=== PATIENT | male | born 1940 | race Caucasian/White ===

== ENCOUNTER → 2020-05-28 | Outpatient (CLI) | payer OTHER ==
[~2020-05-28] MED LIST: ACET-1600 PO; ALOG12.52 PO; ATOR40TA78 PO; CYAN-27 PO; GABA300C PO; GLIP5TAB10 PO; HYDROCHLOROTH12.5 MG PO; IBUP200C8 PO; LEVO88TA4 PO; LISI40TA PO; METH500T7 PO; OMEP-110 PO
[2020-05-28 15:06] LABS: BASOPHILS # (AUTO) 0.06 x10^3/uL (0-0.1); BASOPHILS % (AUTO) 1 % (0-1); EOSINOPHILS # (AUTO) 0.14 x10^3/uL (0-0.4); EOSINOPHILS % (AUTO) 2 % (1-7); LYMPHOCYTES % (AUTO) 23 % (22-44); MD NO; MEAN CORPUSCULAR HEMOGLOBIN 30.5 pg (27.5-34.5); MEAN CORPUSCULAR HGB CONC 33.2 g/dL (33.2-36.2); MEAN CORPUSCULAR VOLUME 91.7 fL (81-97); MEAN PLATELET VOLUME 9.9 fL (7.4-10.4); MONOCYTES # (AUTO) 0.49 x10^3/uL (0.2-0.8); MONOCYTES % (AUTO) 5 % (2-9); NEUTROPHILS # (AUTO) 6.25 x10^3/uL (1.8-6.8); NEUTROPHILS % (AUTO) 69 % (42-75); PLATELET COUNT 231 x10^3/uL (130-400); RED BLOOD COUNT 4.96 x10^6/uL (4.38-5.82); RED CELL DISTRIBUTION WIDTH 14.9 % (9.4-14.8)
[2020-05-28 15:18] LABS: ALBUMIN 4.1 g/dL (3.4-5.0); ANION GAP 9 mmol/L (5-15); CALCIUM 8.6 mg/dL (8.5-10.1); CHLORIDE 106 mmol/L (98-107)
[2020-05-28 15:21] LABS: ALANINE AMINOTRANSFERASE 31 U/L (12-78); ALKALINE PHOSPHATASE 73 U/L (45-117); BILIRUBIN,TOTAL 0.8 mg/dL (0.2-1.0); CREATININE 1.34 mg/dL (0.7-1.3); TOTAL PROTEIN 7.8 g/dL (6.4-8.2)
[2020-05-28 15:29] LABS: INTERNATIONAL NORMALIZED RATIO 1.07 (0.93-1.1)
[2020-05-28 15:41] LABS: MICROSCOPIC NOT IND
== END | disposition home or self-care (01) ==
LOC: STAR 13:44
PROVIDERS: ATTEND Neurological Surgery
DX: Z01.818 Encounter for other preprocedural examination (principal); Z01.812 Encounter for preprocedural laboratory examination; Z01.811 Encounter for preprocedural respiratory examination; Z01.810 Encounter for preprocedural cardiovascular examination; M48.062 Spinal stenosis, lumbar region with neurogenic claudication; R79.1 Abnormal coagulation profile; R82.90 Unspecified abnormal findings in urine; R94.31 Abnormal electrocardiogram [ECG] [EKG]
CPT/HCPCS: 36415; 71046; 80053; 81003; 85025; 85610; 85730; 93005

== ENCOUNTER 2020-06-03 07:51 | Observation (INO) | payer OTHER ==
[~2020-06-03] VITALS: Ht 180.3 cm; Wt 93.8 kg
[~2020-06-03 07:51] MED LIST changes: +BACITRACIN 50,000 UNIT ONE; +BUPIVACAINE/PF-EPI 0.5% 1:200K ONE; +VANCOMYCIN 1,000 MG ONE
[2020-06-03] MEDS ORDERED: CHLORHEXIDINE 15 ML UDC MM ONE (08:30)
[2020-06-03 08:40] VITALS: BP 150/82
[2020-06-03] MEDS: LACTATED RINGERS 1,000 ML IV SCH ×2 (09:06→12:36)
[2020-06-03] MEDS ORDERED: FENTANYL PF 250 MCG/5ML ONE (09:32)
[2020-06-03] MEDS ORDERED: OXYcodone 5 MG/5 ML ORAL.SOL UDC ONE (12:15)
[2020-06-03] MEDS ORDERED: FENTANYL PF 100 MCG/2ML ONE (12:15)
[2020-06-03] MEDS: FENTANYL PF 100 MCG/2ML IV PRN ×2 (12:20→12:30)
[2020-06-03] MEDS ORDERED: ONDANSETRON 2MG/ML, 2ML IVPush PRN (12:30)
[2020-06-03] MEDS: LEVOTHYROXINE 88 MCG TABLET PO SCH (12:30)
[2020-06-03] MEDS ORDERED: ONDANSETRON 2MG/ML, 2ML ONE (12:30)
[2020-06-03] MEDS ORDERED: DIPHENHYDRAMINE 50 MG/ML, 1ML IVPush PRN (12:30)
[2020-06-03] MEDS ORDERED: CEFAZOLIN PMX 1GM/50ML 50 ML IVPB SCH (12:30)
[2020-06-03] MEDS ORDERED: ACETAMINOPHEN 650 MG SUPP PR PRN (12:30)
[2020-06-03] MEDS ORDERED: BISACODYL 10 MG SUPP PR PRN (12:30)
[2020-06-03] MEDS ORDERED: SENNA/DOCUSATE TABLET PO PRN (12:30)
[2020-06-03] MEDS ORDERED: NEOSTIGMINE 1 MG/ML, 10ML ONE (12:30)
[2020-06-03] MEDS ORDERED: SUCCINYLCHOLINE 20 MG/ML, 10ML ONE (12:30)
[2020-06-03] MEDS ORDERED: METHOCARBAMOL 1,000 MG in DEXTROSE 5% 100 ML IV ONE (12:30)
[2020-06-03] MEDS ORDERED: HYDROcodone/APAP 10/325 MG TABLET PO PRN (12:30)
[2020-06-03] MEDS: CYANOCOBALAMIN 1,000 MCG TABLET PO SCH (12:30)
[2020-06-03] MEDS ORDERED: SUGAMMADEX 200 MG/2 ML IVPush ONE (12:30)
[2020-06-03] MEDS ORDERED: GLYCOPYRROLATE 0.2MG/1ML, 5ML ONE (12:30)
[2020-06-03] MEDS ORDERED: DEXAMETHASONE 4 MG/ML, 1ML ONE (12:30)
[2020-06-03] MEDS: HYDROCHLOROTHIAZIDE 12.5 MG CAPSULE PO SCH (12:30)
[2020-06-03] MEDS ORDERED: ENOXAPARIN 40 MG/0.4 ML SQ SCH (12:30)
[2020-06-03] MEDS ORDERED: PHARMACY MAY ADJ FOR RENAL FX MC PRN (12:30)
[2020-06-03] MEDS ORDERED: HYDROmorphone 1 MG/ML, 1ML INJ IVPush PRN (12:30)
[2020-06-03] MEDS ORDERED: ROCURONIUM 10MG/ML,5ML ONE (12:30)
[2020-06-03] MEDS ORDERED: CEFAZOLIN 1,000 MG ONE (12:30)
[2020-06-03] MEDS ORDERED: PROPOFOL 10 MG/ML, 20ML ONE (12:30)
[2020-06-03] MEDS ORDERED: MAGNESIUM HYDROXIDE 8%, 30ML UDC PO PRN (12:30)
[2020-06-03] MEDS ORDERED: HYDROcodone/APAP 5/325 TABLET PO PRN (12:30)
[2020-06-03] MEDS ORDERED: PROMETHAZINE 25 MG/ML, 1ML IM PRN (12:30)
[2020-06-03] MEDS: OMEPRAZOLE 20 MG CAPSULE.DR PO SCH (12:30)
[2020-06-03] MEDS ORDERED: HYDROmorphone 1 MG/ML, 1ML INJ ONE (12:40)
[2020-06-03] MEDS: HYDROmorphone 2 MG/ML, 1ML IVPush PRN ×2 (12:42→12:52)
[2020-06-03] MEDS ORDERED: ACETAMINOPHEN 325 MG TABLET PO PRN (13:00)
[2020-06-03] MEDS ORDERED: hydrALAzine 20 MG/ML, 1ML IV PRN (13:00)
[2020-06-03] MEDS ORDERED: LABETALOL 5MG/ML, 20ML IV PRN (13:00)
[2020-06-03] MEDS ORDERED: ALBUTEROL SULFATE 2.5 MG/3 ML NPPB PRN (13:00)
[2020-06-03] MEDS ORDERED: MEPERIDINE/PF 25MG/0.5ML IVPush PRN (13:00)
[2020-06-03] MEDS ORDERED: PROMETHAZINE 25 MG/ML, 1ML IV PRN (13:00)
[2020-06-03] MEDS ORDERED: OXYcodone 5 MG/5 ML ORAL.SOL UDC PO PRN (13:00)
[2020-06-03] MEDS ORDERED: DIAZEPAM 5 MG/ML, 2ML IVPush PRN (13:00)
[2020-06-03 18:02] VITALS: BP 152/72
[2020-06-03] MEDS: LISINOPRIL 40 MG TABLET PO SCH (18:13)
[2020-06-03] MEDS: CEFAZOLIN PMX 1GM/50ML 50 ML IVPB SCH (18:49)
[2020-06-03] MEDS: NS + 20MEQ KCL 1,000 ML IV SCH (18:49)
[2020-06-03] MEDS: SODIUM CHLORIDE FLUSH 10ML SYR IVF SCH (20:25)
[2020-06-03] MEDS: GABAPENTIN 300 MG CAPSULE PO SCH (20:25)
[2020-06-03] MEDS ORDERED: ATORVASTATIN 40 MG TABLET PO SCH (21:00)
[2020-06-03 23:16] VITALS: BP 134/67
[2020-06-04] MEDS: CEFAZOLIN PMX 1GM/50ML 50 ML IVPB SCH (02:42)
[2020-06-04 03:38] VITALS: BP 137/69
[2020-06-04] MEDS: NS + 20MEQ KCL 1,000 ML IV SCH (05:02)
[2020-06-04] MEDS ORDERED: ENOXAPARIN 40 MG/0.4 ML SQ SCH (06:00)
[2020-06-04 08:10] VITALS: BP 127/71
[2020-06-04] MEDS: LISINOPRIL 40 MG TABLET PO SCH (08:57)
[2020-06-04] MEDS: CYANOCOBALAMIN 1,000 MCG TABLET PO SCH (08:57)
[2020-06-04] MEDS: GABAPENTIN 300 MG CAPSULE PO SCH (08:58)
[2020-06-04] MEDS: OMEPRAZOLE 20 MG CAPSULE.DR PO SCH (08:58)
[2020-06-04] MEDS: SODIUM CHLORIDE FLUSH 10ML SYR IVF SCH (08:58)
[2020-06-04] MEDS: HYDROCHLOROTHIAZIDE 12.5 MG CAPSULE PO SCH (08:58)
[2020-06-04] MEDS: LEVOTHYROXINE 88 MCG TABLET PO SCH (08:58)
[2020-06-04] MEDS ORDERED: LINAGLIPTIN 5 MG TAB PO SCH (09:00)
[2020-06-04] MEDS ORDERED: OXYC5CAP2 PO (09:38)
[2020-06-04] MEDS ORDERED: METH750T2 PO (09:39)
== END 2020-06-04 12:20 | disposition home or self-care (01) ==
LOC: OUT 07:51 → ORIP 12:03 → 4NE 17:54 → DCLOUNGE 06-04 12:06
PROVIDERS: ADMIT Neurological Surgery; ATTEND Neurological Surgery
DX: M48.062 Spinal stenosis, lumbar region with neurogenic claudication (principal); Z20.828 Contact with and (suspected) exposure to other viral communicable diseases; M51.16 Intervertebral disc disorders with radiculopathy, lumbar region; I10 Essential (primary) hypertension; E11.9 Type 2 diabetes mellitus without complications; G43.909 Migraine, unspecified, not intractable, without status migrainosus; E78.5 Hyperlipidemia, unspecified; Z87.891 Personal history of nicotine dependence; Z79.899 Other long term (current) drug therapy
CPT/HCPCS: 36415; 63056; 63057; 72100; 82962; 87635; 96361; 96365; 96366; 96372; 96375; 97161; G0378; J0690; J1100; J1170; J1650; J2405; J2704; J2800; J3010; J3370; J3480; J7120; J2710; J0330

== ENCOUNTER 2020-10-16 09:45 | Day surgery (SDC) | payer MEDICARE ==
[2020-10-13 15:05] LABS: ALBUMIN 3.6 g/dL (3.4-5.0); CALCIUM 8.4 mg/dL (8.5-10.1); CHLORIDE 104 mmol/L (98-107)
[2020-10-13 15:09] LABS: ALANINE AMINOTRANSFERASE 28 U/L (12-78); ALKALINE PHOSPHATASE 94 U/L (45-117); BILIRUBIN,TOTAL 0.8 mg/dL (0.2-1.0); CREATININE 1.24 mg/dL (0.7-1.3); TOTAL PROTEIN 7.5 g/dL (6.4-8.2)
[2020-10-13 15:11] LABS: ANION GAP 9 mmol/L (5-15)
[~2020-10-16] VITALS: Ht 180.3 cm; Wt 90.7 kg
[~2020-10-16 09:45] MED LIST changes: -BACITRACIN 50,000 UNIT ONE; -BUPIVACAINE/PF-EPI 0.5% 1:200K ONE; +CHOL10003 PO; +LEVO100T5 PO; +METH750T2 PO; +OXYC5CAP2 PO; -VANCOMYCIN 1,000 MG ONE
[2020-10-16 10:26] VITALS: BP 176/85
[2020-10-16] MEDS ORDERED: LACTATED RINGERS 1,000 ML IV SCH (10:30)
[2020-10-16] MEDS ORDERED: CHLORHEXIDINE 15 ML UDC MM ONE (10:30)
[2020-10-16] MEDS ORDERED: FENTANYL PF 100 MCG/2ML ONE (11:26)
[2020-10-16] MEDS ORDERED: MIDAZOLAM 1 MG/ML, 2ML ONE (11:26)
[2020-10-16 11:33] LABS: CALCIUM 8.4 mg/dL (8.5-10.1); CHLORIDE 109 mmol/L (98-107)
[2020-10-16] MEDS ORDERED: LIDOCAINE/PF 1%, 30ML ONE (11:35)
[2020-10-16 11:36] LABS: ANION GAP 8 mmol/L (5-15)
[2020-10-16] MEDS ORDERED: ACETAMINOPHEN 500 MG TABLET PO PRN (12:00)
[2020-10-16] MEDS ORDERED: DEXAMETHASONE 4 MG/ML, 5ML ONE (12:58)
[2020-10-16] MEDS ORDERED: SUCCINYLCHOLINE 20 MG/ML, 10ML ONE (12:58)
[2020-10-16] MEDS ORDERED: EPHEDRINE 50 MG/ML, 1ML ONE (12:58)
[2020-10-16] MEDS ORDERED: BUPIVACAINE/PF-EPI 0.5% 1:200K INFIL ONE (13:27)
[2020-10-16] MEDS ORDERED: EPINEPHRINE TOPICAL SOLN 1 MG/ML, 30ML ONE (13:44)
[2020-10-16] MEDS ORDERED: ROCURONIUM 10MG/ML,5ML ONE (13:53)
[2020-10-16] MEDS ORDERED: ONDANSETRON 2MG/ML, 2ML ONE (13:53)
[2020-10-16] MEDS ORDERED: LIDOCAINE-MPF 2% ,5ML ONE (13:53)
[2020-10-16] MEDS ORDERED: PROPOFOL 10 MG/ML, 20ML ONE (13:53)
[2020-10-16] MEDS ORDERED: CEFAZOLIN 1,000 MG ONE (13:53)
[2020-10-16] MEDS ORDERED: BUPIVACAINE/PF 0.5% ONE (13:53)
[2020-10-16] MEDS ORDERED: ALBUTEROL SULFATE 2.5 MG/3 ML NPPB PRN (14:00)
[2020-10-16] MEDS ORDERED: FENTANYL PF 100 MCG/2ML IV PRN (14:00)
[2020-10-16] MEDS ORDERED: ACETAMINOPHEN 325 MG TABLET PO PRN (14:00)
[2020-10-16] MEDS ORDERED: PROMETHAZINE 25 MG/ML, 1ML IVPush PRN (14:00)
[2020-10-16] MEDS ORDERED: HYDROmorphone 1 MG/ML, 1ML INJ IVPush PRN (14:00)
[2020-10-16] MEDS ORDERED: MIDAZOLAM 1 MG/ML, 2ML IV PRN (14:00)
[2020-10-16] MEDS ORDERED: OXYcodone 5 MG/5 ML ORAL.SOL UDC PO PRN (14:00)
[2020-10-16] MEDS ORDERED: LABETALOL 5MG/ML, 20ML ONE (14:07)
[2020-10-16] MEDS: LABETALOL 5MG/ML, 20ML IV PRN ×2 (14:10→14:53)
[2020-10-16] MEDS ORDERED: hydrALAzine 20 MG/ML, 1ML ONE (14:15)
[2020-10-16] MEDS: hydrALAzine 20 MG/ML, 1ML IV PRN ×2 (14:22→14:43)
[2020-10-16] MEDS ORDERED: GABAPENTIN 300 MG CAPSULE PO SCH (21:00)
[2020-10-16] MEDS ORDERED: ATORVASTATIN 40 MG TABLET PO SCH (21:00)
[2020-10-17] MEDS ORDERED: LEVOTHYROXINE 100 MCG TABLET PO SCH (06:00)
[2020-10-17] MEDS ORDERED: OMEPRAZOLE 20 MG CAPSULE.DR PO SCH (07:30)
[2020-10-17] MEDS ORDERED: CHOLECALCIFEROL 1,000 UNIT TABLET PO SCH (09:00)
[2020-10-17] MEDS ORDERED: CYANOCOBALAMIN 1,000 MCG TABLET PO SCH (09:00)
[2020-10-17] MEDS ORDERED: LISINOPRIL 40 MG TABLET PO SCH (09:00)
[2020-10-17] MEDS ORDERED: LINAGLIPTIN 5 MG TAB PO SCH (09:00)
[2020-10-17] MEDS ORDERED: HYDROCHLOROTHIAZIDE 12.5 MG CAPSULE PO SCH (09:00)
== END 2020-10-16 17:00 | disposition home or self-care (01) ==
LOC: OUT 09:45
PROVIDERS: ATTEND Orthopaedic Surgery
DX: S46.011A Strain of muscle(s) and tendon(s) of the rotator cuff of right shoulder, initial encounter (principal); S46.111A Strain of muscle, fascia and tendon of long head of biceps, right arm, initial encounter; S43.431A Superior glenoid labrum lesion of right shoulder, initial encounter; M75.41 Impingement syndrome of right shoulder; M94.211 Chondromalacia, right shoulder; M19.011 Primary osteoarthritis, right shoulder; G89.18 Other acute postprocedural pain; I10 Essential (primary) hypertension; E78.5 Hyperlipidemia, unspecified; K21.9 Gastro-esophageal reflux disease without esophagitis; E11.9 Type 2 diabetes mellitus without complications; Z20.822 Contact with and (suspected) exposure to COVID-19; Z79.890 Hormone replacement therapy; Z79.899 Other long term (current) drug therapy; Z88.8 Allergy status to other drugs, medicaments and biological substances; Z82.49 Family history of ischemic heart disease and other diseases of the circulatory system; W18.39XA Other fall on same level, initial encounter; Y93.89 Activity, other specified; Y92.89 Other specified places as the place of occurrence of the external cause; Y99.8 Other external cause status
CPT/HCPCS: 29823; 29824; 29826; 36415; 64415; 80048; 80053; 82962; 93005; J0330; J0360; J0690; J1100; J2250; J2405; J2704; J3010; J7120; U0003

== ENCOUNTER → 2020-12-11 | Outpatient (CLI) | payer MEDICARE ==
[~2020-12-11] MED LIST changes: -LISI40TA PO; +LISI40TA9 PO; +METH-639 PO; +METH-640 PO; -METH500T7 PO; -METH750T2 PO; +METO25TA35 PO; +TRIA1TAB3 PO
[2020-12-11 10:15] LABS: ALANINE AMINOTRANSFERASE 26 U/L (12-78); ALBUMIN 3.8 g/dL (3.4-5.0); ANION GAP 7 mmol/L (5-15); CHLORIDE 106 mmol/L (98-107); CREATININE 1.45 mg/dL (0.7-1.3)
[2020-12-11 10:17] LABS: ALKALINE PHOSPHATASE 87 U/L (45-117); BILIRUBIN,TOTAL 0.5 mg/dL (0.2-1.0); TOTAL PROTEIN 7.7 g/dL (6.4-8.2)
== END | disposition home or self-care (01) ==
LOC: STAR 08:28
PROVIDERS: ATTEND Orthopaedic Surgery
DX: Z01.812 Encounter for preprocedural laboratory examination (principal); Z20.822 Contact with and (suspected) exposure to COVID-19; M19.011 Primary osteoarthritis, right shoulder; M75.101 Unspecified rotator cuff tear or rupture of right shoulder, not specified as traumatic
CPT/HCPCS: 36415; 80053; 87081; 93005; U0003

== ENCOUNTER 2020-12-16 07:24 | Day surgery (SDC) | payer MEDICARE ==
[~2020-12-16] VITALS: Ht 180.3 cm; Wt 87.9 kg
[~2020-12-16 07:24] MED LIST changes: +BUPIVACAINE/PF-EPI 0.5% 1:200K ONE; +CLINDAMYCIN 150 MG/ML, 6ML ONE
[2020-12-16] MEDS ORDERED: MIDAZOLAM 1 MG/ML, 2ML ONE (07:54)
[2020-12-16] MEDS ORDERED: FENTANYL PF 250 MCG/5ML ONE (07:54)
[2020-12-16 07:56] VITALS: BP 134/78
[2020-12-16] MEDS ORDERED: LACTATED RINGERS 1,000 ML IV SCH (08:00)
[2020-12-16] MEDS ORDERED: VANCOMYCIN PER PHARMACY MC PRN (08:00)
[2020-12-16] MEDS ORDERED: CHLORHEXIDINE 15 ML UDC MM ONE (08:00)
[2020-12-16] MEDS ORDERED: LORazepam 2 MG/ML, 1ML IVPush PRN (08:30)
[2020-12-16] MEDS ORDERED: VANCOMYCIN 1,800 MG in SODIUM CHLORIDE 0.9% 250 ML IV ONE (08:30)
[2020-12-16] MEDS ORDERED: LABETALOL 5MG/ML, 20ML IV PRN (08:30)
[2020-12-16] MEDS ORDERED: PROMETHAZINE 25 MG/ML, 1ML IVPush PRN (08:30)
[2020-12-16] MEDS ORDERED: ONDANSETRON 2MG/ML, 2ML IVPush PRN (08:30)
[2020-12-16] MEDS ORDERED: OXYcodone 5 MG/5 ML ORAL.SOL UDC PO PRN (08:30)
[2020-12-16] MEDS ORDERED: MEPERIDINE/PF 25MG/0.5ML IVPush PRN (08:30)
[2020-12-16] MEDS ORDERED: hydrALAzine 20 MG/ML, 1ML IV PRN (08:30)
[2020-12-16] MEDS ORDERED: METHOCARBAMOL 1,000 MG in DEXTROSE 5% 100 ML IV PRN (08:30)
[2020-12-16] MEDS ORDERED: ACETAMINOPHEN 325 MG TABLET PO PRN (08:30)
[2020-12-16] MEDS ORDERED: BUPIVACAINE LIPOSOME/PF 10ML INFIL ONE (08:49)
[2020-12-16] MEDS ORDERED: KETOROLAC 30 MG/1 ML ONE (10:23)
[2020-12-16] MEDS ORDERED: ACETAMINOPHEN 500 MG TABLET PO PRN (11:00)
[2020-12-16] MEDS ORDERED: NEOSTIGMINE 1 MG/ML, 10ML ONE (11:18)
[2020-12-16] MEDS ORDERED: ONDANSETRON 2MG/ML, 2ML ONE (11:18)
[2020-12-16] MEDS ORDERED: SUCCINYLCHOLINE 20 MG/ML, 10ML ONE (11:18)
[2020-12-16] MEDS ORDERED: DEXAMETHASONE 4 MG/ML, 1ML ONE (11:18)
[2020-12-16] MEDS ORDERED: PROPOFOL 10 MG/ML, 20ML ONE (11:18)
[2020-12-16] MEDS ORDERED: GLYCOPYRROLATE 0.2MG/1ML, 5ML ONE (11:18)
[2020-12-16] MEDS ORDERED: CEFAZOLIN 1,000 MG ONE (11:18)
[2020-12-16] MEDS ORDERED: ROCURONIUM 10MG/ML,5ML ONE (11:18)
[2020-12-16] MEDS ORDERED: FENTANYL PF 100 MCG/2ML ONE ×2 (11:51→12:03)
[2020-12-16] MEDS ORDERED: OXYcodone 5 MG/5 ML ORAL.SOL UDC ONE (12:03)
[2020-12-16] MEDS ORDERED: ACETAMINOPHEN 650 MG/20.3 ML UDC ONE (12:04)
[2020-12-16] MEDS: FENTANYL PF 100 MCG/2ML IV PRN ×2 (12:05→12:10)
[2020-12-16] MEDS ORDERED: HYDROmorphone 1 MG/ML, 1ML INJ ONE ×2 (12:14→12:52)
[2020-12-16] MEDS: HYDROmorphone 1 MG/ML, 1ML INJ IVPush PRN ×4 (12:17→13:25)
[2020-12-16] MEDS ORDERED: hydrALAzine 20 MG/ML, 1ML ONE (13:20)
[2020-12-16] MEDS ORDERED: METOPROLOL TARTRATE 25 MG TAB PO SCH (18:00)
[2020-12-16] MEDS ORDERED: GABAPENTIN 300 MG CAPSULE PO SCH (21:00)
[2020-12-16] MEDS ORDERED: ATORVASTATIN 40 MG TABLET PO SCH (21:00)
[2020-12-17] MEDS ORDERED: LEVOTHYROXINE 100 MCG TABLET PO SCH (06:00)
[2020-12-17] MEDS ORDERED: OMEPRAZOLE 20 MG CAPSULE.DR PO SCH (06:00)
[2020-12-17] MEDS ORDERED: LISINOPRIL 40 MG TABLET PO SCH (09:00)
[2020-12-17] MEDS ORDERED: LINAGLIPTIN 5 MG TAB PO SCH (09:00)
[2020-12-17] MEDS ORDERED: CHOLECALCIFEROL 1,000 UNIT TABLET PO SCH (09:00)
[2020-12-17] MEDS ORDERED: TRIAMTERENE-HCTZ 37.5/25 MG TABLET PO SCH (09:00)
== END 2020-12-16 15:35 | disposition home or self-care (01) ==
LOC: OUT 07:24
PROVIDERS: ATTEND Orthopaedic Surgery
DX: M19.011 Primary osteoarthritis, right shoulder (principal); M75.101 Unspecified rotator cuff tear or rupture of right shoulder, not specified as traumatic; G89.18 Other acute postprocedural pain; E11.9 Type 2 diabetes mellitus without complications; I10 Essential (primary) hypertension; Z79.890 Hormone replacement therapy; Z79.891 Long term (current) use of opiate analgesic; Z79.899 Other long term (current) drug therapy; Z82.49 Family history of ischemic heart disease and other diseases of the circulatory system
CPT/HCPCS: 23472; 64415; 82962; C1713; C1769; C1776; J0330; J0690; J1100; J1170; J1885; J2250; J2405; J2704; J2710; J2800; J3010

== ENCOUNTER 2021-02-19 20:11 | Emergency (ER) | payer SELFPAY ==
[~2021-02-19 20:11] MED LIST changes: -BUPIVACAINE/PF-EPI 0.5% 1:200K ONE; -CLINDAMYCIN 150 MG/ML, 6ML ONE
[2021-02-19] MEDS ORDERED: SODIUM CHLORIDE FLUSH 10ML SYR IVF ONE (20:30)
[2021-02-19] MEDS ORDERED: SODIUM CHLORIDE 0.9% 1,000ML IVBOLUS ONE (20:30)
[2021-02-19] MEDS ORDERED: ALOG12.52 PO (21:53)
[2021-02-19] MEDS ORDERED: PHEN-583 PO (21:53)
[2021-02-19] MEDS ORDERED: CEPH-376 PO (21:53)
[2021-02-19] MEDS ORDERED: TAMS-11 PO (21:53)
[2021-02-19] MEDS ORDERED: HYDR25TA6 PO (21:53)
== END 2021-02-19 21:29 | disposition left against medical advice (07) ==
LOC: MERGE 20:11 → ED 20:12
DX: M54.9 Dorsalgia, unspecified (principal); Z53.21 Procedure and treatment not carried out due to patient leaving prior to being seen by health care provider